=== PATIENT | female | born 1940 | race Caucasian/White ===

== ENCOUNTER 2019-01-20 07:57 | Day surgery (SDC) | payer MEDICARE ==
[~2019-01-20] VITALS: Ht 167.6 cm; Wt 90.7 kg
[2019-01-20] VITALS (11 sets, daily range): BP systolic 110–151; BP diastolic 58–90
[~2019-01-20 07:57] MED LIST: HEParin (CATH LAB) 2,000 ML IV ONE; LIDOCAINE 1% INJ 20 ML 20 ML VIAL ONE; NS IV 1000 ML 1,000 ML ONE
[2019-01-20] MEDS ORDERED: NS IV 1000 ML 1,000 ML IV SCH ×2 (08:15→12:00)
[2019-01-20 08:33] LABS: HEMOGLOBIN 15.7 G/DL (11.5-16.0); MEAN PLATELET VOLUME 11.2 FL (7.4-10.4); RED CELL DISTRIBUTION WIDTH 14.5 % (10.0-14.5); WHITE BLOOD COUNT 7.8 10^3/uL (4.3-11.0)
[2019-01-20] MEDS ORDERED: NIFE30TA82 PO (08:45)
[2019-01-20] MEDS ORDERED: OMEG-33 PO (08:45)
[2019-01-20] MEDS ORDERED: TRIA1CAP PO (08:45)
[2019-01-20] MEDS ORDERED: ATEN100T PO (08:45)
[2019-01-20 08:50] LABS: PROTHROMBIN TIME PATIENT 13.1 SEC (12.2-14.7)
[2019-01-20 08:55] LABS: ALBUMIN 4.4 GM/DL (3.2-4.5); BILIRUBIN,TOTAL 0.6 MG/DL (0.1-1.0); CREATININE SERUM 1.38 MG/DL (0.60-1.30); POTASSIUM 4.1 MMOL/L (3.6-5.0); TOTAL PROTEIN 7.4 GM/DL (6.4-8.2)
[2019-01-20] MEDS ORDERED: MIDAZOLAM 5 MG/5 ML (VERSED) VIAL ONE (10:42)
[2019-01-20] MEDS ORDERED: fentaNYL INJECTION 100 MCG/2 ML AMP ONE (10:43)
[2019-01-20] MEDS ORDERED: PATIENT MAY USE OWN MEDS, ALL PO SCH (12:00)
--- NOTE | 2019-01-20 12:00 | Cardiac Procedure Note-CS/ASA ---
Pre-Procedure Note Pre-Op Procedure Note H&P Reviewed The H&P was reviewed, patient examined and no changes noted. Date H&P Reviewed: Jan 20, 2019 Time H&P Reviewed: 11:10 Conscious Sedation Pre-Proced Time 11:10 ASA Score 3 For ASA 3 and 4: Consider anesthesia and medical clearance. Also, for patients with a history of failed moderate sedation consider anesthesia. Airway Lungs Heart ASA score ASA 1: a normal healthy patient ASA 2: a patient with a mild systemic disease (mid diabetes, controlled hypertension, obesity ASA 3: a patient with a severe systemic disease that limits activity (angina, COPD, prior Myocardial infarction) ASA 4: a patient with an incapacitating disease that is a constant threat to life (CHF, renal failure) ASA 5: a moribund patient not expected to survive 24 hrs. (ruptured aneurysm) ASA 6: a declared brain- patient whose organs are being harvested. For emergent operations, add the letter E after the classification Mallampati Classification Grade 2 Sedation Plan Analgesia, Amnesia, Plan communicated to team members, Discussed options with patient/fam, Discussed risks with patient/fam The patient is an appropriate candidate to undergo the planned procedure, sedation, and anesthesia. The patient immediately re-assessed prior to indication. LIZANDRO MCKEON MD FACP FAC CCDS Jan 20, 2019 12:00
[2019-01-20] MEDS ORDERED: ATOR40TA70 PO (12:05)
[2019-01-20] MEDS ORDERED: CLOP75TA69 PO (12:05)
[2019-01-20] MEDS ORDERED: ASPI-999 PO (12:05)
--- NOTE | 2019-01-20 12:06 | Discharge Inst-Post CATH ---
Discharge Inst-CATH/EP Post Cardiac Cath/EP D/C Inst Follow Up/Plan F/u at Dr Hutton's in 3-4 weeks ACTIVITY * Go Home directly and rest. * Limit activity of the leg (or wrist if it was used) for 7 days including aerobics, swimming, jogging, bicycling, etc. * Restrict stair-climbing for 7 days if possible, if not, climb up with your non-cath leg, then bring together on the same step. * Avoid lifting, pushing, pulling or excessive movement of the affected extremity for 7 days. * Customary sexual activity may be resumed after 2 days-use caution not to use a position that strains or causes pain to the affected extremity. * No driving for 24 hours. * NO SMOKING. * Avoid straining for bowel movements for 7 days. * Gentle walking on level ground is allowed. * Returning to work will depend on the type of procedure and the results. Your doctor will discuss this with you. CALL YOUR DOCTOR FOR ANY OF THE FOLLOWING: *If bleeding from the puncture site occurs- Apply gentle pressure to site with clean cloth and call your doctor or EMS. * If a knot or lump forms under the skin, increases in size, or causes pain. * If bruising appears to be worsening or moving further down your leg instead of disappearing. * Temperature above 101 F. CARE OF YOUR GROIN INCISION; * Bruising or purple discoloration of the skin near the puncture site is common. * You may shower only, no bathtub bathing for 5 days. Be careful to avoid slipping as your leg may feel stiff. * If a closure device was used on your femoral artery, please see the attached guide regarding care of the device and your leg. * Leave dressing on FOR 24 hours. CARE OF YOUR WRIST INCISION; * Bruising or purple discoloration of the skin near the puncture site is common. * You may shower. * DO NOT submerge wrist. * Leave dressing on FOR 24 hours. LIZANDRO HUTTON MD [facility] CCDS Jan 20, 2019 12:06
--- NOTE | 2019-01-20 12:07 | Discharge Inst-Cardiology ---
Discharge Inst-Cardiac Discharge Medications New Medications: Aspirin (Aspirin) 81 Mg Tab.chew 81 MG PO DAILY, #90 TAB 3 Refills Atorvastatin Calcium (Atorvastatin Calcium) 40 Mg Tablet 40 MG PO DAILY, #30 TAB 5 Refills Clopidogrel Bisulfate (Plavix) 75 Mg Tablet 75 MG PO DAILY, #30 TAB 5 Refills Continued Medications: Atenolol (Atenolol) 100 Mg Tablet 100 MG PO DAILY, TAB Nifedipine (Nifedipine ER) 30 Mg Tab.er.24 30 MG PO DAILY, TAB [place]-3/Dha/Epa/Fish Oil (Fish Oil 500 mg Softgel) 1 Each Capsule 1 EACH PO TID, CAP Discontinued Medications: Triamterene/Hydrochlorothiazid (Dyazide 37.5-25 Capsule) 1 Each Capsule 1 EACH PO DAILY, CAP Patient Instructions Patient Instructions: No smoking or tobacco use or vapor Orders-Post D/C & Referrals Pneu Vac Indicated: Yes LIZANDRO MCKEON MD FACP FAC CCDS Jan 20, 2019 12:07
[2019-01-20] MEDS ORDERED: ATEN50TA PO (12:40)
--- NOTE | 2019-01-20 15:05 | NUR ---
SONO HERE TO DO AN ECHO. NO SIGNS OF BLEEDING FROM THE RIGHT GROIN.
--- NOTE | 2019-01-20 15:53 | CARDIAC CATHETERIZATION ---
DATE OF SERVICE: 01/20/2019 CARDIAC CATHETERIZATION REPORT The patient is a 78-year-old lady with multiple coronary artery disease risk factors, who has a history of coronary artery disease and a myocardial perfusion imaging study carried out by her fitness sales consultant, Dr. 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 She has had more shortness of breath and is due also for knee replacement surgery. She was sent to us for cardiac evaluation. Given her history and symptoms, cardiac catheterization was recommended. Informed consent was obtained. PROCEDURE IN DETAIL She was brought to the cardiac catheterization laboratory in a fasting state. Right groin was prepared and draped in the usual sterile fashion. Lidocaine 1% was used as local anesthesia. Modified Seldinger technique was used to advance a 5-Moroccan sheath in the right femoral artery, 5-Moroccan JL4 catheter for left coronary angiography, 5-Moroccan JR4 catheter for right coronary angiography, 5-Moroccan pigtail catheter was used for left heart catheterization. Left ventricular angiography was not performed. This was to conserve contrast, given the patient's renal insufficiency. At the end of the procedure, angiography of the right femoral artery was carried out through the sheath. We used manual pressure to achieve hemostasis because the site of sheath insertion did not appear suitable for device closure. She tolerated the procedure well. Angiography of the right femoral artery through the sheath did indicate considerable diffuse calcification and stenoses of the iliofemoral system and of the proximal portion of the right superficial femoral artery with stenoses of up to approximately 90%. HEMODYNAMICS: Left ventricular end-diastolic pressure following coronary angiography was 17 mmHg. There is no significant pressure gradient on pullback across the aortic valve. Ascending aortic pressure was 107/41 with a mean of 59 mmHg. LEFT VENTRICULAR CORONARY ANGIOGRAPHY: Left ventricular coronary angiography was not performed to conserve contrast. Echocardiography will be carried out to evaluate left ventricular systolic function. CORONARY ANGIOGRAPHY: Coronary calcification is present. Left main coronary artery does not exhibit significant disease. Left anterior descending artery has 50% proximal and mid vessel stenosis. Left circumflex artery has 40% mid vessel stenosis. Right coronary artery has 99% proximal to midvessel stenosis and is occluded in its distal portion. The distal right coronary artery is heavily collateralized from the left coronary system. CONCLUSIONS: 1. Coronary artery disease primarily consisting of distal occlusion of the right coronary, which is collateralized from the left coronary system. Left anterior descending artery has 50% proximal and mid vessel stenosis, and left circumflex artery has 40% mid vessel stenosis. 2. Elevated left ventricular end-diastolic pressure. 3. Incidental note is made of considerable peripheral vascular disease involving the right iliofemoral and superficial femoral arterial systems. DISCUSSION AND RECOMMENDATIONS: Based on results of the study, cardiac risk for noncardiac surgery is estimated to be intermediate and it appears reasonable to proceed with necessary surgery. She was made aware of her findings. The findings of peripheral arterial disease are limited to a small injection that we made through the right femoral arterial sheath. If she so desires, her workup would require a peripheral angiogram to delineate the nature and extent of her peripheral arterial disease to plan any intervention, if needed. Meanwhile, we have advised her to quit smoking immediately and completely. We have advised initiation of therapy with aspirin and clopidogrel. We have also advised initiation of therapy with atorvastatin. We gave her a prescription of 40 mg a day. We have advised repeat hepatic, lipid, renal and electrolyte profiles in three to four weeks and followup with our office in three to four weeks. The most important intervention that she should carry out is quitting smoking. She understands and states that she will try to comply. Job ID: [id number] DocumentID: [id number] Dictated Date: 01/20/2019 12:47:33 Phlebotomy Specialist Date: 01/20/2019 15:52:22 Dictated By: LIZANDRO MCKEON MD, MA, FACP, FACC, MTDD
== END 2019-01-20 17:10 | disposition home or self-care (01) ==
LOC: CATH 07:57 → SDC 12:35 → CATH 17:10
PROVIDERS: ATTEND Internal Medicine Cardiovascular Disease
DX: I25.10 Atherosclerotic heart disease of native coronary artery without angina pectoris (principal); I70.201 Unspecified atherosclerosis of native arteries of extremities, right leg; I08.1 Rheumatic disorders of both mitral and tricuspid valves; I10 Essential (primary) hypertension; E78.5 Hyperlipidemia, unspecified; F17.210 Nicotine dependence, cigarettes, uncomplicated; E66.9 Obesity, unspecified; Z68.32 Body mass index [BMI] 32.0-32.9, adult; Z79.82 Long term (current) use of aspirin; Z79.899 Other long term (current) drug therapy
CPT/HCPCS: 36415; 36430; 80053; 80061; 85027; 85610; 85730; 87081; 93005; 93306; 93458